=== PATIENT | male | born 1960 | race Caucasian/White ===

== ENCOUNTER 2021-01-28 23:32 | Inpatient (IN) ==
[2021-01-28] MEDS ORDERED: Ipratropium/Albuterol Neb 3 ML IH ONE (23:39)
[2021-01-29 01:02] LABS: Basophils # 0.1 K/mcL (0.0-0.2); Basophils % 0.5 %; Eosinophils # 0.6 K/mcL (0.0-0.6); Eosinophils % 5.6 %; Hematocrit 42.1 % (37.5-50.1); Hemoglobin 14.2 g/dL (12.9-16.9); Immature Granulocytes % 0.3 % (0-4); Lymphocytes # 0.9 K/mcL (0.6-4.6); Lymphocytes % 8.9 %; Mean Corpuscular HGB Conc 33.7 g/dL (31.6-35.5); Mean Corpuscular Hemoglobin 33.6 pg (28.0-33.3); Mean Corpuscular Volume 99.5 fL (83.0-100.0); Mean Platelet Volume 9.9 fL (9.4-12.4); Monocytes # 1.1 K/mcL (0.0-1.3); Monocytes % 10.4 %; Neutrophils # 7.5 K/mcL (1.6-8.9); Platelet Count 200 K/mcL (140-400); Red Blood Count 4.23 M/mcL (4.19-5.50); Red Cell Distribution Width 13.1 % (11.5-14.5); Segmented Neutrophils % 74.3 %; White Blood Count 10.1 K/mcL (4.3-11.1)
[2021-01-29] MEDS ORDERED: Ipratropium/Albuterol Neb 3 ML IH ONE ×2 (01:21→02:22)
[2021-01-29 01:22] LABS: BUN/Creatinine Ratio 11 (6-26); Blood Urea Nitrogen 8 mg/dL (6-20); Calcium 9.9 mg/dL (8.6-10.3); Carbon Dioxide 27 mEq/L (23-29); Chloride 101 mEq/L (98-107); Glucose 105 mg/dL (70-105); Osmolality,Calculated 293 (280-300); Potassium 4.5 mEq/L (3.5-5.1); Sodium 142 mEq/L (136-145); eGFR For African Americans > 60 (> 60); eGFR For Non-African Americans > 60 (> 60)
[2021-01-29 01:23] LABS: Troponin I < 0.03 ng/mL (< 0.04)
[2021-01-29] MEDS ORDERED: 0.9 % Sodium Chloride 1,000 ML IV ONE (02:19)
[2021-01-29 02:38] LABS: Prothrombin Time 11.6 Seconds (9.4-12.1)
[2021-01-29 02:41] LABS: Activated Partial Thrombo Time 32.1 Seconds (26.0-36.0)
[2021-01-29] MEDS ORDERED: Isovue-370 500 ML BOTTLE IVP ONE (03:09)
[2021-01-29] MEDS ORDERED: Albuterol Neb 7.5 MG, Sodium Chloride for inhalation 12 ML IH ONE (03:11)
[2021-01-29] MEDS ORDERED: EPINEPHrine 1 MG/ML VIAL IM ONE (03:49)
[2021-01-29] MEDS ORDERED: EPINEPHrine 1 MG/ML VIAL ONE (03:50)
[2021-01-29 04:51] LABS: VBG HCO3 28 mEq/L (21-27); VBG PCO2 55 mmHg (41-51); VBG PH 7.32 pH Units (7.32-7.42); VBG PO2 129 mmHg (25-50)
[2021-01-29] MEDS ORDERED: Dexmedetomidine HCl 400 MCG/100 ML MLS IVC ONE (08:07)
[2021-01-29] MEDS ORDERED: methylPREDNISolone 125 MG/2 ML VIAL ONE (08:08)
[2021-01-29] MEDS ORDERED: Furosemide 20 MG/2 ML VIAL IVP ONE (08:08)
[2021-01-29] MEDS: DilTIAZem 50 MG/50 ML IV.SOLN IVC SCH ×2 (09:54→17:06)
[2021-01-29] MEDS: Dexmedetomidine HCl 400 MCG/100 ML MLS IVC SCH ×2 (09:54→13:44)
[2021-01-29] MEDS ORDERED: Perflutren Lipid Microsphere 1.3 ML in 0.9 % Sodium Chloride 8.7 ML IVP PRN (11:37)
[2021-01-29] MEDS: Pantoprazole 40 MG VIAL IVP SCH (13:39)
[2021-01-29] MEDS: methylPREDNISolone 125 MG/2 ML VIAL IM SCH (17:57)
[2021-01-29] MEDS: Aspirin 81 MG TAB.CHEW PO SCH (20:51)
[2021-01-30] MEDS: methylPREDNISolone 125 MG/2 ML VIAL IM SCH ×5 (00:12→23:18)
[2021-01-30] MEDS: Dexmedetomidine HCl 400 MCG/100 ML MLS IVC SCH (04:31)
[2021-01-30 04:58] LABS: Hematocrit 39.6 % (37.5-50.1); Hemoglobin 13.7 g/dL (12.9-16.9); Mean Corpuscular HGB Conc 34.6 g/dL (31.6-35.5); Mean Corpuscular Hemoglobin 33.4 pg (28.0-33.3); Mean Corpuscular Volume 96.6 fL (83.0-100.0); Platelet Count 168 K/mcL (140-400); Red Cell Distribution Width 12.4 % (11.5-14.5); White Blood Count 8.8 K/mcL (4.3-11.1)
[2021-01-30 05:04] LABS: VBG HCO3 26 mEq/L (21-27); VBG PCO2 37 mmHg (41-51); VBG PH 7.46 pH Units (7.32-7.42); VBG PO2 137 mmHg (25-50)
[2021-01-30] MEDS: *HR* Enoxaparin 40 MG/0.4 ML SYRINGE SQ SCH ×2 (05:43→09:32)
[2021-01-30] MEDS: DilTIAZem SR (12hr) 60 MG CAP.ER.12H PO SCH ×2 (09:32→21:42)
[2021-01-30] MEDS: Aspirin 81 MG TAB.CHEW PO SCH (09:32)
[2021-01-30] MEDS: Pantoprazole 40 MG VIAL IVP SCH (09:32)
[2021-01-30] MEDS ORDERED: *HR* LORazepam 2 MG/ML VIAL IVP PRN ×3 (09:43)
[2021-01-30 10:07] LABS: Magnesium 2.1 mg/dL (1.6-2.6); Phosphorous 3.6 mg/dL (2.7-4.5)
[2021-01-30] MEDS: Budesonide/Formoterol 160/4.5 1 PUFF INH IH SCH ×2 (11:04→22:48)
[2021-01-30 19:50] LABS: BUN/Creatinine Ratio 28 (6-26); Blood Urea Nitrogen 26 mg/dL (6-20); Calcium 9.3 mg/dL (8.6-10.3); Carbon Dioxide 24 mEq/L (23-29); Chloride 96 mEq/L (98-107); Glucose 313 mg/dL (70-105); Osmolality,Calculated 287 (280-300); Potassium 4.3 mEq/L (3.5-5.1); Sodium 130 mEq/L (136-145); eGFR For African Americans > 60 (> 60); eGFR For Non-African Americans > 60 (> 60)
[2021-01-30 20:31] VITALS: TEMP 98.2
[2021-01-30] MEDS: Ibuprofen 800 MG TABLET PO PRN (22:43)
[2021-01-31] MEDS: *HR* Enoxaparin 40 MG/0.4 ML SYRINGE SQ SCH (06:28)
[2021-01-31] MEDS: methylPREDNISolone 125 MG/2 ML VIAL IM SCH ×2 (06:28→11:11)
[2021-01-31] MEDS: Ibuprofen 800 MG TABLET PO PRN (06:29)
[2021-01-31 06:48] LABS: Hematocrit 38.3 % (37.5-50.1); Hemoglobin 13.1 g/dL (12.9-16.9); Mean Corpuscular HGB Conc 34.2 g/dL (31.6-35.5); Mean Corpuscular Hemoglobin 33.6 pg (28.0-33.3); Mean Corpuscular Volume 98.2 fL (83.0-100.0); Mean Platelet Volume 10.9 fL (9.4-12.4); Platelet Count 185 K/mcL (140-400); Red Cell Distribution Width 12.4 % (11.5-14.5); White Blood Count 17.1 K/mcL (4.3-11.1)
[2021-01-31 07:10] LABS: BUN/Creatinine Ratio 32 (6-26); Blood Urea Nitrogen 25 mg/dL (6-20); Calcium 9.4 mg/dL (8.6-10.3); Carbon Dioxide 28 mEq/L (23-29); Chloride 98 mEq/L (98-107); Glucose 205 mg/dL (70-105); Osmolality,Calculated 288 (280-300); Potassium 3.9 mEq/L (3.5-5.1); Sodium 134 mEq/L (136-145); eGFR For African Americans > 60 (> 60); eGFR For Non-African Americans > 60 (> 60)
[2021-01-31 07:18] VITALS: BP 137/87
[2021-01-31] MEDS: Budesonide/Formoterol 160/4.5 1 PUFF INH IH SCH (07:45)
[2021-01-31] MEDS ORDERED: Thiamine (B-1) 100 MG TABLET PO SCH (09:00)
[2021-01-31] MEDS ORDERED: Folic Acid 1 MG TABLET PO SCH (09:00)
[2021-01-31] MEDS: Aspirin 81 MG TAB.CHEW PO SCH (09:30)
[2021-01-31] MEDS: Pantoprazole 40 MG VIAL IVP SCH (09:31)
[2021-01-31] MEDS: DilTIAZem SR (12hr) 60 MG CAP.ER.12H PO SCH (09:31)
[2021-01-31 10:04] VITALS: PULSE 92; O2SAT 95
== END 2021-01-31 12:31 | disposition home or self-care (01) | DRG 202 ==
LOC: CDU 23:32 → EMEROOARM 23:32 → ICNU 01-29 06:55 → 2NENU 01-30 10:21
PROVIDERS: ADMIT Internal Medicine; ATTEND Internal Medicine